=== PATIENT | female | born 1990 ===

== ENCOUNTER 2017-01-13 12:26 | Emergency (ER) | payer OTHER ==
[2017-01-13 12:45] VITALS: BP 108/64; PULSE 61; RESP 16; TEMP 99; O2SAT 100
[2017-01-13] MEDS ORDERED: Dexamethasone 4 mg/1 ml ONE (12:58)
--- NOTE | 2017-01-13 12:59 | ED PDOC ---
HPI: General Adult Time Seen by Provider: 01/13/17 12:56 Chief Complaint (Nursing): ENT Problem Chief Complaint (Provider): sore throat History Per: Patient (26 y/o female here with fever/chills/throat pain. Started unknown antibiotic given by mother yesterday. Denies any cough/uri/ vomiting. Has had h/o of peritonsillar abscess and states she wants to "catch it early.") Past Medical History Reviewed: Historical Data, Nursing Documentation, Vital Signs Vital Signs: Last Vital Signs Temp 99.0 F 01/13/17 12:42 Pulse 61 01/13/17 12:42 Resp 16 01/13/17 12:42 BP 108/64 01/13/17 12:42 Pulse Ox 100 01/13/17 12:42 - Medical History PMH: Denies: HIV - Family History Family History: States: Unknown Family Hx - Home Medications Home Medications: Ambulatory Orders Medication Instructions Recorded Acetaminophen [Acetaminophen Extra 2 tab PO Q4 PRN #24 tablet 01/13/17 Strength] Ibuprofen [Motrin Tab] 800 mg PO Q8 PRN #21 tab 01/13/17 Penicillin VK [Pen-Vee K] 1 tab PO QID #40 tab 01/13/17 - Allergies Allergies/Adverse Reactions: Allergies Allergy/AdvReac Type Severity Reaction Status Date / Time No Known Allergies Allergy Verified 01/13/17 12:42 Review of Systems ROS Statement: Except As Marked, All Systems Reviewed And Found Negative ENT: Positive for: Throat Pain Physical Exam - Reviewed Nursing Documentation Reviewed: Yes Vital Signs Reviewed: Yes - Physical Exam Appears: Positive for: Well, Non-toxic, No Acute Distress Head Exam: Positive for: ATRAUMATIC, NORMAL INSPECTION, NORMOCEPHALIC Skin: Positive for: Normal Color, Warm, DRY Eye Exam: Positive for: EOMI, Normal appearance, PERRL ENT: Positive for: Pharynx Is (mild erythema posterior pharynx.). Negative for : Normal ENT Inspection Neck: Positive for: Normal, Painless ROM Cardiovascular/Chest: Positive for: Regular Rate, Rhythm Respiratory: Positive for: CNT, Normal Breath Sounds Gastrointestinal/Abdominal: Positive for: Normal Exam, Bowel Sounds, Soft Back: Positive for: Normal Inspection Extremity: Positive for: Normal ROM Neurologic/Psych: Positive for: Alert, Oriented - ECG O2 Sat by Pulse Oximetry: 100 - Progress ED Course And Treament: Toradol 30 mg IM x 1 dose Decadron 10 mg IM x 1 dose Disposition - Clinical Impression Clinical Impression: Pharyngitis - Patient ED Disposition Is Patient to be Admitted: No - Disposition Disposition: Routine/Home Disposition Time: 12:59 Condition: FAIR Prescriptions: Acetaminophen [Acetaminophen Extra Strength] 2 tab PO Q4 PRN #24 tablet PRN Reason: Fever >100.4 F Ibuprofen [Motrin Tab] 800 mg PO Q8 PRN #21 tab PRN Reason: Fever >100.4 F Penicillin VK [Pen-Vee K] 1 tab PO QID #40 tab Instructions: Pharyngitis (ED) Forms: [facility] ED School/Work Excuse
[2017-01-13] MEDS: Dexamethasone 4 mg/1 ml IM ONE (13:10)
== END 2017-01-13 13:26 | disposition home or self-care (01) ==
LOC: H.ER 12:26
DX: J02.9 Acute pharyngitis, unspecified (principal)